=== PATIENT | male | born 1945 | race Caucasian/White ===

== ENCOUNTER 2017-08-11 12:13 | Emergency (ER) | payer OTHER ==
[~2017-08-11] VITALS: Ht 180.3 cm; Wt 105.2 kg
[~2017-08-11 12:13] MED LIST: "\\\"BP MED\\\""; "\\\"CHOLESTEROL MED\\\""
[2017-08-11 12:26] VITALS: BP 117/68; PULSE 92; RESP 16; TEMP 98.1; O2SAT 98
[2017-08-11] MEDS ORDERED: TETANUS/DIPHTHERIA TOXOID ADULT 0.5 ML VIAL IM ONE (13:15)
[2017-08-11] MEDS ORDERED: AMOXICILLIN/CLAVULANATE K 875 MG TAB PO ONE (13:15)
--- NOTE | 2017-08-11 13:42 | PD ---
HPI Chief Complaint: Bite or Sting Time Seen by Provider: 12:57 Travel History International Travel<30 days: No Contact w/Intl Traveler<30days: No Traveled to known affect area: No History of Present Illness HPI 71-year-old male presents to the emergency room for evaluation of dog bite to the throat and right thumb. Patient was walking down the sidewalk when he approached a pit bull that was guarding a motorcycle. He tried to walk around the dog but it attacked him. It bit his throat and he shoved his hand in the mouth to prevent it from clamping down. In doing so he also got cut on the thumb. He denies any significant pain. The police were called and took the dog into quarantine. The dog has had rabies vaccinations in the past but they were not up-to-date. Unknown last tetanus shot. PFSH Past Medical History Hx Anticoagulant Therapy: Yes (COUMADIN) High Cholesterol: Yes Hypertension: Yes Tetanus Vaccination: > 5 Years Social History Alcohol Use: Yes (DAILY "2 BEERS") Tobacco Use: No Substance Use: No Allergies-Medications (Allergen,Severity, Reaction): Coded Allergies: No Known Allergies (Verified Adverse Reaction, Unknown, 08/11/17) Reported Meds & Prescriptions Reported Meds & Active Scripts Active Augmentin (Amoxicillin-Clavulanate) 875-125 Mg Tab 1 Tab PO BID Reported ["Bp Med"] Review of Systems Except as stated in HPI: all other systems reviewed are Neg Physical Exam Narrative GENERAL: Well-nourished, well-developed male in no acute distress. Afebrile. Ambulatory. SKIN: Focused skin assessment warm/dry. There is a superficial laceration to the right distal thumb with bleeding controlled. Mild tenderness to palpation. There are 2 superficial puncture wounds on the underside of the chin and in the middle of the neck that are nonbleeding. No surrounding subcutaneous emphysema. Mild tenderness to palpation. No obvious foreign body. HEAD: Normocephalic. EYES: No scleral icterus. No injection or drainage. NECK: Supple, trachea midline. No JVD or lymphadenopathy. CARDIOVASCULAR: Regular rate and rhythm without murmurs, gallops, or rubs. RESPIRATORY: Breath sounds equal bilaterally. No accessory muscle use. PSYCHIATRIC: No delusional thought processes. No hallucinations. Data Data Last Documented VS Vital Signs Date Time Temp Pulse Resp B/P (MAP) Pulse Ox O2 Delivery O2 Flow Rate FiO2 08/11/17 12:26 98.1 92 16 117/68 (84) 98 Orders Orders Wound Care (08/11/17 13:05) Tetanus/Diphtheria Tox Adult (Tetanus/Di (08/11/17 13:15) Amoxicil-Clavulanate (Augmentin) (08/11/17 13:15) Soft Tissue Neck (08/11/17 ) Finger ([id number]) (08/11/17 ) MDM Medical Decision Making Medical Screen Exam Complete: Yes Emergency Medical Condition: Yes Medical Record Reviewed: Yes Differential Diagnosis Laceration, contusion, abrasion, puncture wound, dog bite Narrative Course 71-year-old male presents to the emergency room for evaluation of dogbite to his neck and right thumb that occurred just prior to arrival. Patient was walking down the sidewalk when a pit bull bit him in the throat. He stuck his hand in the Doc's throat to keep it from clamping down and it cut his thumb. Unknown last tetanus. The dog has had rabies vaccinations in the past but was not up-to-date. It is currently in quarantine. Rabies vaccination was deferred at this time. X-rays of the neck and thumb show no foreign body. There is no subcutaneous air on x-ray or on exam. Patient is breathing comfortably. Vital signs stable. There is a 0.5 cm superficial laceration to the throat and on the underside of the chin without bleeding. Patient was told to return immediately if the health department recommends vaccination or follow- up with a primary care physician. He was updated on tetanus and given first dose of Augmentin in the emergency room. Diagnosis Primary Impression: Dog bite of right thumb Qualified Codes: S61.051A - Open bite of right thumb without damage to nail, initial encounter; W54.0XXA - Bitten by dog, initial encounter Additional Impression: Dog bite of neck Qualified Codes: S11.90XA - Unspecified open wound of unspecified part of neck , initial encounter; W54.0XXA - Bitten by dog, initial encounter Referrals: Primary Care Physician Additional Instructions: Augmentin as directed, until none. Keep wounds clean and dry. Apply ointment daily. Follow-up with primary care physician. Return for worsening symptoms. Med/Other Pt SpecificInfo: Prescription(s) given Scripts Amoxicillin-Clavulanate (Augmentin) 875-125 Mg Tab 1 TAB PO BID for Infection, #13 TAB 0 Refills Prov: Nitin Concepcion MD 08/11/17 Disposition: 01 DISCHARGE HOME Condition: Stable Kiley Segura Aug 11, 2017 13:42
[2017-08-11] MEDS ORDERED: AUGM875T3 PO (13:58)
--- NOTE | 2017-08-11 14:07 | RADRPT ---
EXAM DATE/TIME: 08/11/2017 13:41 [facility] COMPARISON: No previous studies available for comparison. INDICATIONS : Dog bite to anterior midline of neck. MEDICAL HISTORY : Hypertension. Hypercholesterolemia. SURGICAL HISTORY : Bilateral knees. Right 5th digit. ENCOUNTER: Initial ACUITY: 1 day PAIN SCORE: 5/10 LOCATION: anterior neck FINDINGS: Two view examination of the soft tissues of the neck demonstrates the hypopharyngeal airway to have a grossly normal configuration. The trachea is midline. No radiopaque foreign bodies are seen. Diffu se degenerative changes of the cervical spine. CONCLUSION: 1. No soft tissue defect or radiopaque foreign body. 2. Degenerative changes of the cervical spine. Donnell Maya Jr., MD on August 11, 2017 at 14:04 Board Certified Radiologist. This report was verified electronically.
--- NOTE | 2017-08-11 14:09 | RADRPT ---
EXAM DATE/TIME: 08/11/2017 13:41 [facility] COMPARISON: No previous studies available for comparison. INDICATIONS : Right 1st digit pain post dog bite. MEDICAL HISTORY : Hypertension. Hypercholesterolemia. SURGICAL HISTORY : Bilateral knees. Right 5th digit. ENCOUNTER: Initial ACUITY: 1 day PAIN SCORE: 5/10 LOCATION: Right fifth digit. FINDINGS: 3 images of the right first finger reveal arthritis involving the first carpometacarpal joint as well as the interphalangeal joint of the thumb. Degenerative changes also seen involving the DIP joints o f the second, third, and fourth fingers. 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 No so ft tissue swelling. CONCLUSION: Osteoarthritis. No acute abnormality observed. Prior fifth amputation. Donnell Maya Jr., MD on August 11, 2017 at 14:05 Board Certified Radiologist. This report was verified electronically.
== END 2017-08-11 14:37 | disposition home or self-care (01) ==
LOC: PHEFT 12:13
DX: S61.051A Open bite of right thumb without damage to nail, initial encounter (principal); S11.85XA Open bite of other specified part of neck, initial encounter; I10 Essential (primary) hypertension; W54.0XXA Bitten by dog, initial encounter; Z79.01 Long term (current) use of anticoagulants; Z23 Encounter for immunization
CPT/HCPCS: 70360; 73140; 90471; 90714